=== PATIENT | female | born 1975 ===

== ENCOUNTER 2017-01-23 00:06 | Emergency (ER) | payer MEDICAID ==
[2017-01-23 00:22] VITALS: RESP 16
--- NOTE | 2017-01-23 01:00 | C.PDOC ---
History Of Present Illness pt with nausea, vomiting worsening after eating dinner. Pt has had these symptoms for a few months. (ruq pain and some nausea afte eating) No f/c/ Tolerating po Time Seen by Provider: 01/23/17 01:00 Chief Complaint (Nursing): Abdominal Pain History Per: Patient History/Exam Limitations: no limitations Onset/Duration Of Symptoms: Days Current Symptoms Are (Timing): Still Present Context: Other Severity: Moderate Pain Scale Rating Of: 4 Location Of Pain/Discomfort: RUQ Radiation Of Pain To:: None Quality Of Discomfort: Dull, Stabbing Associated Symptoms: Nausea, Vomiting. denies: Fever, Chills Exacerbating Factors: Food Alleviating Factors: None Last Bowel Movement: Today Recent travel outside of the [place]: No Additional History Per: Family Abnormal Vaginal Bleeding: No Past Medical History Reviewed: Historical Data, Nursing Documentation, Vital Signs Vital Signs: Last Vital Signs Temp 98.1 F 01/23/17 00:19 Pulse 118 H 01/23/17 00:19 Resp 16 01/23/17 00:19 BP 131/90 01/23/17 00:19 Pulse Ox 98 01/23/17 01:14 - Medical History PMH: Diabetes, HTN, Hyperlipidemia Surgical History: Cholecystectomy, (x 3) Family History: States: No Known Family Hx - Social History Hx Tobacco Use: No Hx Alcohol Use: No Hx Substance Use: No - Immunization History Hx Tetanus Toxoid Vaccination: No Hx Influenza Vaccination: Yes Hx Pneumococcal Vaccination: No Review Of Systems Constitutional: Negative for: Fever, Chills Eyes: Negative for: Redness ENT: Negative for: Throat Pain Cardiovascular: Negative for: Chest Pain, Palpitations Respiratory: Negative for: Shortness of Breath Gastrointestinal: Positive for: Nausea, Vomiting, Abdominal Pain Genitourinary: Negative for: Dysuria Musculoskeletal: Negative for: Back Pain Skin: Negative for: Rash, Lesions, Jaundice Neurological: Negative for: Weakness Psych: Negative for: Anxiety Physical Exam - Physical Exam Appears: Non-toxic, No Acute Distress Skin: Warm, Dry Head: Normacephalic Eye(s): bilateral: Normal Inspection Neck: Supple Chest: Symmetrical Cardiovascular: Rhythm Regular Respiratory: No Rales, No Rhonchi, No Wheezing Gastrointestinal/Abdominal: Bowel Sounds (tympanic to percussion), Soft, Tenderness (ruq), No Distention, No Guarding, No Rebound Back: No CVA Tenderness Extremity: No Tenderness Extremity: Bilateral: Atraumatic, Normal Color And Temperature Pulses: Left Dorsalis Pedis: Normal, Right Dorsalis Pedis: Normal Neurological/Psych: Oriented x3, Normal Speech, Normal Cognition Gait: Steady ED Course And Treatment - Laboratory Results Result Diagrams: 01/23/17 01:47 01/23/17 01:47 O2 Sat by Pulse Oximetry: 98 Pulse Ox Interpretation: Normal Reevaluation Time: 05:21 Reassessment Condition: Improved Disposition Counseled Patient/Family Regarding: Studies Performed, Diagnosis, Need For Followup, Rx Given - Disposition Referrals: Eda Carver MD [Medical Doctor] - Disposition: HOME/ ROUTINE Disposition Time: 01:00 Condition: FAIR Prescriptions: Polyethylene Glycol 3350 [Miralax] 17 gm PO DAILY #270 ml Instructions: Abdominal Pain (ED), Gas and Bloating (ED), Ovarian Cyst (ED), Constipation (DC) Forms: [employer] (Hungarian) - Clinical Impression Clinical Impression: Abdominal pain, Ovarian cyst, Constipation
[2017-01-23] MEDS ORDERED: Sodium Chloride 0.9% 1,000 ML IV ONE (01:10)
[2017-01-23 01:51] LABS: BASO # 0.1 K/uL (0.0-0.2); BASO % 0.9 % (0.0-2.0); EOS # 0.4 K/uL (0.0-0.7); EOS % 5.1 % (0.0-4.0); HEMOGLOBIN 12.2 g/dL (11.0-16.0); LYMPH # 2.8 K/uL (1.0-4.3); LYMPH % 40.3 % (20.0-40.0); MEAN CELL VOLUME 78.9 fL (81.0-99.0); MEAN CORPUSCULAR HEMOGLOBIN 26.2 pg (27.0-31.0); MEAN CORPUSCULAR HGB CONC 33.3 g/dL (33.0-37.0); MEAN PLATELET VOLUME 8.4 fL (7.2-11.7); MONO # 0.5 K/uL (0.0-0.8); MONO % 7.4 % (0.0-10.0); NEUT # 3.3 K/uL (1.8-7.0); NEUT % 46.3 % (50.0-75.0); NRBC % 0.1 % (0.0-2.0); RBC 4.65 Mil/uL (3.80-5.20); RED CELL DISTRIBUTION WIDTH 15.3 % (11.5-14.5); WHITE BLOOD COUNT 7.1 K/uL (4.8-10.8)
[2017-01-23 02:05] LABS: ALBUMIN 3.7 g/dL (3.5-5.0)
[2017-01-23 02:07] LABS: AST/SGOT 12 U/L (14-36); GFR AFRICAN-AMERICAN > 60; GFR NON-AFRICAN AMERICAN > 60
[2017-01-23 02:08] LABS: ALB/GLOB RATIO 1.3 (1.0-2.1); ALT/SGPT 22 U/L (9-52); BLOOD UREA NITROGEN 11 mg/dL (7-17); CALCIUM 8.4 mg/dl (8.6-10.4); LIPASE 62 U/L (23-300)
[2017-01-23 02:11] LABS: INR 0.9
[2017-01-23 02:13] LABS: SQUAMOUS EPITHIAL 1 /hpf (0-5); URINE BILIRUBIN NEGATIVE (NEGATIVE); URINE BLOOD NEGATIVE (NEGATIVE); URINE CLARITY Clear (Clear); URINE COLOR Colorless (YELLOW); URINE GLUCOSE (UA) 3+ mg/dL (Normal); URINE LEUKOCYTE ESTERASE NEG Leu/uL (Negative); URINE NITRATE NEGATIVE (NEGATIVE); URINE PROTEIN NEGATIVE (NEGATIVE); URINE UROBILINOGEN NORMAL mg/dL (0.2-1.0)
[2017-01-23 02:14] LABS: HCG,QUALITATIVE URINE NEGATIVE (NEGATIVE)
[2017-01-23] MEDS ORDERED: Sodium Chloride 0.9% 1,000 ML ONE (03:42)
--- NOTE | 2017-01-23 05:02 | CT ---
EXAM: CT Abdomen and Pelvis Without Intravenous Contrast CLINICAL HISTORY: 41 years old, female; Pain; Abdominal pain; Additional info: Abd pain TECHNIQUE: Axial computed tomography images of the abdomen and pelvis without intravenous contrast. This CT exam was performed using one or more of the following dose reduction techniques: automated exposure control, adjustment of the mA and/or kV according to patient size, and/or use of iterative reconstruction technique. Coronal and sagittal reformatted images were created and reviewed. COMPARISON: No relevant prior studies available. FINDINGS: Limitations: Lack of intravenous contrast. Lower thorax: No acute findings. ABDOMEN: Liver: Unremarkable. Gallbladder and bile ducts: Cholecystectomy. No ductal dilation. Pancreas: Unremarkable. No ductal dilation. Spleen: No splenomegaly. Adrenals: No mass. Kidneys and ureters: No renal calculi. No hydronephrosis. Stomach and bowel: No definite mural thickening. No obstruction. Appendix: Normal caliber. No inflammation. PELVIS: Bladder: Unremarkable. No stones. Reproductive: 2.0 x 2.1 x 2.2 cm hypodense lesion within LEFT ovary. ABDOMEN and PELVIS: Intraperitoneal space: No significant fluid collection. No free air. Bones/joints: No acute fracture. Soft tissues: Multiple partially calcified soft tissue densities within breasts and lower abnormal wall, likely fat necrosis. Vasculature: Mild atherosclerotic disease. No aneurysm. Lymph nodes: No pathologically enlarged lymph nodes. IMPRESSION: 1. Probable LEFT ovarian cyst. Consider ultrasound. 2. Incidental/non-acute findings are described above.
[2017-01-23 06:11] VITALS: BP 113/64; PULSE 16; TEMP 98.4; O2SAT 97
== END 2017-01-23 06:26 | disposition home or self-care (01) ==
LOC: C.ER 00:06
DX: N83.209 Unspecified ovarian cyst, unspecified side (principal); K59.00 Constipation, unspecified; R10.11 Right upper quadrant pain
CPT/HCPCS: 74176; 80053; 81001; 82009; 83690; 84703; 85025; 85610; 85730; 96374; 96375; 99284; J2405; J7040

== ENCOUNTER 2018-01-16 11:16 | Emergency (ER) | payer MEDICAID ==
[2018-01-16 11:36] VITALS: RESP 18
[2018-01-16] MEDS ORDERED: Tetanus/Diphtheria Toxoids 0.5 ml Syringe IM ONE (11:37)
[2018-01-16] MEDS ORDERED: Tmp-Smz 800 mg-160 mg DS Tab PO STA (12:14)
[2018-01-16] MEDS ORDERED: Tmp-Smz 800 mg-160 mg DS Tab ONE (12:24)
--- NOTE | 2018-01-16 12:40 | C.PDOC ---
History Of Present Illness 42 year old female complaining of pruritus to the left fourth finger for several days. She reports she then developed a purple blister to the side of proximal phalanx of left fourth finger and swelling to the dorsal side of left hand. She denies any injuries/trauma, fever, chills, weakness, numbness, or tingling. Chief Complaint (Nursing): Abnormal Skin Integrity History Per: Patient History/Exam Limitations: no limitations Onset/Duration Of Symptoms: Days Current Symptoms Are (Timing): Still Present Location Of Injury: Left: Hand (Pruritis to left fourth finger, blister, and swelling) Quality Of Symptoms: Painful, Itching, Swollen Past Medical History Reviewed: Historical Data, Nursing Documentation, Vital Signs Vital Signs: Last Vital Signs Temp 98.2 F 01/16/18 12:53 Pulse 85 01/16/18 12:53 Resp 18 01/16/18 12:53 BP 117/78 01/16/18 12:53 Pulse Ox 98 01/16/18 15:21 - Medical History PMH: Diabetes, HTN, Hyperlipidemia Surgical History: Cholecystectomy, (x 3) Family History: States: No Known Family Hx - Social History Hx Tobacco Use: No Hx Alcohol Use: No Hx Substance Use: No - Immunization History Hx Tetanus Toxoid Vaccination: No Hx Influenza Vaccination: Yes Hx Pneumococcal Vaccination: No Review Of Systems Except As Marked, All Systems Reviewed And Found Negative. Constitutional: Negative for: Fever, Chills Skin: Positive for: Lesions (Left fourth finger), Other (Pruritus to left finger ) Neurological: Negative for: Weakness, Numbness Physical Exam - Physical Exam Appears: Non-toxic, No Acute Distress Skin: Warm, Dry, Other (4mm purple discolaration and tenderness to proximal phalanx of left fourth finger ) Head: Atraumatic Eye(s): bilateral: Normal Inspection Nose: Normal Oral Mucosa: Moist Neck: Normal ROM, Supple Extremity: Normal ROM Pulses: Left Radial: Normal, Right Radial: Normal Neurological/Psych: Oriented x3, Normal Speech, Normal Motor, Normal Sensation, Normal Reflexes Gait: Steady ED Course And Treatment O2 Sat by Pulse Oximetry: 98 (RA) Pulse Ox Interpretation: Normal - Other Rad left hand xray X-Ray: Viewed By Me, Read By Radiologist Interpretation: Accession No. : [id number]. Patient Name / ID : HERMINIO WOODRUFF / [id number]. Exam Date : 01/16/2018 11:58:09 ( Approved ). Study Comment : Sex / Age : F / 42Y. Creator : Ziggy Bundy MD. Dictator : Ziggy Bundy MD. Tapper Balance Wheel Screw Hole : Wind Energy Engineer : Ziggy Bundy MD. Approver2 : Report Date : 01/16/2018 13:20:48. My Comment : . PROCEDURE: Left Hand Radiographs. HISTORY: swelling. COMPARISON: None. FINDINGS: BONES: Normal. No fracture. JOINTS: Arthritic changes are noted. SOFT TISSUES: Soft tissue swelling noted more prominent around the proximal interphalangeal joints. OTHER FINDINGS: None. IMPRESSION: No evidence of acute fracture or dislocation. Arthritic changes. Progress Note: Patient was evaluated at [facility] by ED attending . Patient treated with Bactrim 1 tab PO and Keflex 500mg PO. On reassessment, patient reports feeling better. Patient given Rx for Bactrim, Bactrobran ointment, and Keflex. Patient stable and ready for discharge. Disposition - Disposition Referrals: Brody Benedict MD [Staff Provider] - Disposition: HOME/ ROUTINE Disposition Time: 12:37 Condition: STABLE Additional Instructions: Follow up with your PMD and hand specialist within 2-3 days. Return to ED immediately if feel worse. Prescriptions: Sulfamethoxazole/Trimethoprim [Bactrim DS 800 mg-160 mg] 1 tab PO BID #14 tab Mupirocin 2% Ointment [Bactroban Ointment] 1 appl TP BID #1 tube Cephalexin [Keflex] 500 mg PO Q6 #28 cap Instructions: Cellulitis and Erysipelas (Skin Infections) Forms: [employer] (Mongolian) - Clinical Impression Clinical Impression: Infection, skin - PA / INCIDENT ANALYST / Resident Statement MD/DO has reviewed & agrees with the documentation as recorded. - Scribe Statement The provider has reviewed the documentation as recorded by the Scribe Neela Luke All medical record entries made by the Scribe were at my direction and personally dictated by me. I have reviewed the chart and agree that the record accurately reflects my personal performance of the history, physical exam, medical decision making, and the department course for this patient. I have also personally directed, reviewed, and agree with the discharge instructions and disposition.
[2018-01-16 12:54] VITALS: BP 117/78; PULSE 85; TEMP 98.2
--- NOTE | 2018-01-16 13:22 | RAD ---
PROCEDURE: Left Hand Radiographs. HISTORY: swelling COMPARISON: None. FINDINGS: BONES: Normal. No fracture. JOINTS: Arthritic changes are noted. SOFT TISSUES: Soft tissue swelling noted more prominent around the proximal interphalangeal joints. OTHER FINDINGS: None. IMPRESSION: No evidence of acute fracture or dislocation. Arthritic changes.
[2018-01-16 15:14] VITALS: O2SAT 98
== END 2018-01-16 13:00 | disposition home or self-care (01) ==
LOC: C.ER 11:16
DX: L08.9 Local infection of the skin and subcutaneous tissue, unspecified (principal)

== ENCOUNTER 2018-05-10 20:57 | Emergency (ER) | payer MEDICAID ==
--- NOTE | 2018-05-10 21:44 | C.PDOC ---
History Of Present Illness 42 year old female presents to the ED c/o vomiting, diarrhea that started yesterday. Patient also c/o occasional epigastrci abdominal pain discomfort. Patient has past surgical history of tummy tuck, , and gallbladder. Patient denies fever, chills, CP, SOB, recent travel, sick contacts, rash. Time Seen by Provider: 05/10/18 21:36 Chief Complaint (Nursing): GI Problem History Per: Patient History/Exam Limitations: no limitations Onset/Duration Of Symptoms: Days Current Symptoms Are (Timing): Still Present Quality Of Discomfort: "Pain" Associated Symptoms: Vomiting, Diarrhea. denies: Constipation, Urinary Symptoms Recent travel outside of the [place]: No Additional History Per: Patient Abnormal Vaginal Bleeding: No Past Medical History Reviewed: Historical Data, Nursing Documentation, Vital Signs Vital Signs: Last Vital Signs Temp 98.8 F 05/10/18 21:14 Pulse 123 H 05/10/18 21:14 Resp 22 05/10/18 21:14 BP 122/82 05/10/18 21:14 Pulse Ox 99 05/10/18 21:14 - Medical History PMH: Diabetes, HTN, Hyperlipidemia Surgical History: Cholecystectomy, (x 3) Other Surgeries: tummy tuck Family History: States: Unknown Family Hx - Social History Hx Tobacco Use: No Hx Alcohol Use: No Hx Substance Use: No - Immunization History Hx Tetanus Toxoid Vaccination: No Hx Influenza Vaccination: Yes Hx Pneumococcal Vaccination: No Review Of Systems Constitutional: Negative for: Fever, Chills Cardiovascular: Negative for: Chest Pain Respiratory: Negative for: Cough, Shortness of Breath Gastrointestinal: Positive for: Vomiting, Abdominal Pain, Diarrhea Skin: Negative for: Rash Neurological: Negative for: Weakness, Numbness Physical Exam - Physical Exam Appears: Non-toxic, No Acute Distress Skin: Normal Color, Warm, Dry, Other (mild turgor) Head: Atraumatic, Normacephalic Eye(s): bilateral: Normal Inspection Oral Mucosa: Moist Neck: Normal ROM, Supple Chest: Symmetrical Cardiovascular: Rhythm Regular Respiratory: Normal Breath Sounds, No Rales, No Rhonchi, No Wheezing Gastrointestinal/Abdominal: Soft, No Tenderness, No Guarding, No Rebound Extremity: Normal ROM, No Tenderness, No Swelling Neurological/Psych: Oriented x3, Normal Speech, Normal Cognition Gait: Steady ED Course And Treatment - Laboratory Results Result Diagrams: 05/10/18 22:09 05/10/18 22:09 O2 Sat by Pulse Oximetry: 99 (ON RA) Pulse Ox Interpretation: Normal Progress - Re-Evaluation Re-evaluation Note: 05/10/18 23:24 +FEVER. ?FLU 05/11/18 00:51 IMPROVED. VSS - Data Reviewed Data Reviewed: Lab Medical Decision Making Medical Decision Making: Plan: * Labs * Bentyl 20 mg PO * Lomotil 1 tab PO * IV fluids * Zofran 4 mg IVP Disposition Counseled Patient/Family Regarding: Studies Performed, Diagnosis, Need For Followup, Rx Given - Disposition Referrals: YOUR,PMD [Other] Disposition: HOME/ ROUTINE Disposition Time: 00:51 Condition: IMPROVED Prescriptions: Atropine/Diphenoxylate [Lonox 0.025 MG-2.5 MG] 1 tab PO TID #15 tab Dicyclomine [Bentyl] 20 mg PO TID PRN #12 tab PRN Reason: Pain Ondansetron [Zofran Odt] 4 mg PO TID PRN #9 odt PRN Reason: Nausea/Vomiting Oseltamivir [Tamiflu] 75 mg PO BID #10 cap Instructions: Viral Syndrome (DC) Forms: [employer] (Omani), Work Excuse - Clinical Impression Clinical Impression: Vomiting and diarrhea, Influenza-like illness - Scribe Statement The provider has reviewed the documentation as recorded by the Scribe Kai Mullen All medical record entries made by the Scribe were at my direction and personally dictated by me. I have reviewed the chart and agree that the record accurately reflects my personal performance of the history, physical exam, medical decision making, and the department course for this patient. I have also personally directed, reviewed, and agree with the discharge instructions and disposition.
[2018-05-10] MEDS ORDERED: Atropine-Diphenoxylate 0.025-2.5 mg Tab PO STA (21:45)
[2018-05-10] MEDS ORDERED: Atropine-Diphenoxylate 0.025-2.5 mg Tab ONE (21:57)
[2018-05-10] MEDS ORDERED: Sodium Chloride 0.9% 2,000 ML ONE (21:58)
[2018-05-10 22:17] LABS: BASO % 0.3 % (0.0-2.0); EOS # 0.1 K/uL (0.0-0.7); EOS % 0.9 % (0.0-4.0); HEMOGLOBIN 12.8 g/dL (11.0-16.0); LYMPH # 1.4 K/uL (1.0-4.3); LYMPH % 15.9 % (20.0-40.0); MEAN CELL VOLUME 73.2 fL (81.0-99.0); MEAN CORPUSCULAR HEMOGLOBIN 24.3 pg (27.0-31.0); MEAN CORPUSCULAR HGB CONC 33.2 g/dL (33.0-37.0); MEAN PLATELET VOLUME 8.5 fL (7.2-11.7); MONO # 0.6 K/uL (0.0-0.8); MONO % 6.4 % (0.0-10.0); NEUT # 6.8 K/uL (1.8-7.0); NEUT % 76.5 % (50.0-75.0); RBC 5.27 Mil/uL (3.80-5.20); RED CELL DISTRIBUTION WIDTH 16.3 % (11.5-14.5); WHITE BLOOD COUNT 8.8 K/uL (4.8-10.8)
[2018-05-10 23:06] LABS: BLOOD UREA NITROGEN 15 mg/dL (7-17); CALCIUM 9.1 mg/dl (8.6-10.4); GFR NON-AFRICAN AMERICAN > 60
[2018-05-11 01:18] VITALS: BP 91/48; PULSE 90; RESP 16; TEMP 99; O2SAT 98
== END 2018-05-11 01:26 | disposition home or self-care (01) ==
LOC: C.ER 20:57
DX: J11.1 Influenza due to unidentified influenza virus with other respiratory manifestations (principal); R11.10 Vomiting, unspecified; R19.7 Diarrhea, unspecified
CPT/HCPCS: 80048; 85025; 87804; 96361; 96374; 96375; 99285; J1885; J2405; J7030